=== PATIENT | female | born 1970 | race Caucasian/White ===

== ENCOUNTER → 2021-02-06 | Outpatient (CLI) | payer OTHER ==
[~2021-02-06] VITALS: Ht 22.9 cm; Wt 105.9 kg
== END | disposition home or self-care (01) ==
LOC: DTH 11:50
PROVIDERS: ATTEND Surgery
DX: I10 Essential (primary) hypertension (principal); M19.91 Primary osteoarthritis, unspecified site; K21.9 Gastro-esophageal reflux disease without esophagitis; E78.00 Pure hypercholesterolemia, unspecified; E66.3 Overweight
CPT/HCPCS: 97802

== ENCOUNTER → 2021-03-16 | Outpatient (CLI) | payer OTHER | END | disposition home or self-care (01) | LOC: DTH 03-09 09:03 | PROVIDERS: ATTEND Surgery | DX: I10 Essential (primary) hypertension (principal); K21.9 Gastro-esophageal reflux disease without esophagitis; E78.00 Pure hypercholesterolemia, unspecified; M19.91 Primary osteoarthritis, unspecified site; E66.3 Overweight | CPT/HCPCS: 97803 ==

== ENCOUNTER → 2021-04-06 | Outpatient (CLI) | payer OTHER | END | disposition home or self-care (01) | LOC: DTH 08:56 | PROVIDERS: ATTEND Surgery | DX: Z71.3 Dietary counseling and surveillance (principal); E78.00 Pure hypercholesterolemia, unspecified; G47.33 Obstructive sleep apnea (adult) (pediatric); I10 Essential (primary) hypertension; K21.9 Gastro-esophageal reflux disease without esophagitis; M19.91 Primary osteoarthritis, unspecified site | CPT/HCPCS: 97803 ==

== ENCOUNTER → 2021-06-08 | Outpatient (CLI) | payer BC ==
[2021-06-08 11:20] LABS: APPEARANCE,URINE Clear (CLEAR); BILIRUBIN,URINE Negative (NEGATIVE); COLOR,URINE Yellow (YELLOW); GLUCOSE, URINE (UA) Negative (NEGATIVE); KETONES,URINE Negative (NEGATIVE); LEUKOCYTE ESTERASE ,URINE Moderate (NEGATIVE); NITRATE,URINE Negative (NEGATIVE); OCCULT BLOOD,URINE Negative (NEGATIVE); PROTEIN,URINE Negative (NEGATIVE)
[2021-06-08 11:20] LABS: BASOPHILS % (AUTO) 0.8 % (0.0-5.0); EOSINOPHILS % (AUTO) 3.7 % (0.0-8.0); HEMATOCRIT 39.4 % (36-48); LYMPHOCYTES % (AUTO) 28.7 % (21.0-51.0); MEAN CORPUSCULAR HEMOGLOBIN 29.2 pg (27.0-33.0); MEAN CORPUSCULAR HGB CONC 33.2 g/dL (32.0-36.0); MEAN CORPUSCULAR VOLUME 87.9 fL (79-99); MONOCYTES % (AUTO) 6.7 % (3.0-13.0); PLATELET COUNT (AUTO) 269 K/uL (130-400); RED BLOOD CELL COUNT(AUTO) 4.48 MIL/uL (4.00-5.50); RED CELL DISTRIBUTION WIDTH 13.1 % (11.0-15.5); WHITE BLOOD COUNT (AUTO) 7.6 K/uL (4.8-10.8)
[2021-06-08 11:26] LABS: HEMOGLOBIN A1C 6.2 % (4.0-6.0)
[2021-06-08 11:29] LABS: BACTERIA,URINE Few /HPF (None Seen); RBC,URINE 0-1 /HPF (0-1); SQUAMOUS EPITHELIAL CELL,UR Few /HPF (0-2)
[2021-06-08 11:32] LABS: % IRON SATURATION 24.2 % (22-44)
[2021-06-08 11:39] LABS: INR 0.96 (0.85-1.15); PROTHROMBIN TIME 10.5 SEC (9.6-11.6)
[2021-06-08 11:41] LABS: PARTIAL THROMBOPLASTIN TIME 27.5 SEC (26.3-35.5)
[2021-06-08 11:56] LABS: ALBUMIN 3.7 g/dL (3.5-5.0); BILIRUBIN,TOTAL 0.4 mg/dL (0.2-1.0); CREATININE 0.8 mg/dL (0.5-1.5); MAGNESIUM 1.9 mg/dL (1.80-2.40); PHOSPHORUS 3.7 mg/dL (2.5-4.9); POTASSIUM 3.6 mmol/L (3.5-5.1); THYROID STIMULATING HORMONE 0.83 uIU/mL (0.36-3.74); TOTAL PROTEIN, SERUM 7.2 g/dL (6.0-8.3)
== END | disposition home or self-care (01) ==
LOC: LAB 09:56
PROVIDERS: ATTEND Family Medicine
DX: Z01.812 Encounter for preprocedural laboratory examination (principal); Z01.810 Encounter for preprocedural cardiovascular examination; E66.09 Other obesity due to excess calories; E78.2 Mixed hyperlipidemia; I10 Essential (primary) hypertension; K21.9 Gastro-esophageal reflux disease without esophagitis
CPT/HCPCS: 36415; 80053; 80061; 81001; 82043; 82306; 82525; 82607; 82728; 82746; 83036; 83540; 83550; 83735; 83970; 84100; 84425; 84443; 84446; 84590; 84597; 84630; 85025; 85610; 85730; 87077; 87088; 87186

== ENCOUNTER 2021-08-06 07:41 | Inpatient (IN) | payer OTHER ==
[2021-08-03 12:14] LABS: BASOPHILS % (AUTO) 0.6 % (0.0-5.0); EOSINOPHILS % (AUTO) 2.3 % (0.0-8.0); HEMATOCRIT 41.1 % (36-48); LYMPHOCYTES % (AUTO) 30.9 % (21.0-51.0); MEAN CORPUSCULAR HEMOGLOBIN 28.5 pg (27.0-33.0); MEAN CORPUSCULAR HGB CONC 32.4 g/dL (32.0-36.0); NEUTROPHILS % (AUTO) 58.9 % (40.0-77.0); PLATELET COUNT (AUTO) 258 K/uL (130-400); RED BLOOD CELL COUNT(AUTO) 4.67 MIL/uL (4.00-5.50); RED CELL DISTRIBUTION WIDTH 12.6 % (11.0-15.5); WHITE BLOOD COUNT (AUTO) 8.9 K/uL (4.8-10.8)
[2021-08-03 12:22] LABS: CREATININE 0.8 mg/dL (0.5-1.5); POTASSIUM 3.7 mmol/L (3.5-5.1)
[2021-08-05 08:49] VITALS: BP 146/86
[2021-08-06] VITALS (23 sets, daily range): BP systolic 12–135; BP diastolic 55–85
[~2021-08-06] VITALS: Ht 175.3 cm; Wt 106.9 kg
[~2021-08-06 07:41] MED LIST: ATEN1TAB3 PO; ESTR0.5T PO; ROSU5TAB12 PO; SERT25TA PO
[2021-08-06] MEDS ORDERED: HEPARIN 5,000 UNIT VIAL ONE (08:52)
[2021-08-06] MEDS: CEFOXITIN SODIUM 2 GM VIAL IVP SCH ×2 (08:57→10:30)
[2021-08-06] MEDS ORDERED: LACTATED RINGERS 1000ML 1,000 ML IV ONE (08:58)
[2021-08-06] MEDS ORDERED: HEPARIN 5,000 UNIT VIAL SQ SCH (09:00)
[2021-08-06] MEDS ORDERED: SCOPOLAMINE HYDROBROMIDE 1 EACH ADH..PATCH TD ONE (10:21)
[2021-08-06] MEDS ORDERED: ONDANSETRON 4MG INJ ONE ×2 (10:22→12:10)
[2021-08-06] MEDS ORDERED: MIDAZOLAM HCL 1 MG/ML 2ML VIAL ONE (10:22)
[2021-08-06] MEDS ORDERED: DEXMEDETOMIDINE HCL 200 MCG/2 ML VIAL IV ONE (10:25)
[2021-08-06] MEDS ORDERED: MAGNESIUM SULFATE 4.06 MEQ/ML ***TPN USE ONLY IJ ONE (10:26)
[2021-08-06] MEDS ORDERED: FENTANYL CITRATE PF 50 MCG/1 ML 2ML VIAL ONE (10:32)
[2021-08-06] MEDS ORDERED: PROPOFOL 10 MG/ML 20ML VIAL IV ONE (10:32)
[2021-08-06] MEDS ORDERED: ROCURONIUM 10MG/1ML SYR 10 MG/ML ML ONE ×2 (10:32→10:53)
[2021-08-06] MEDS ORDERED: BUPIVACAINE/PF 0.5% 30ML VIAL ONE (10:36)
[2021-08-06] MEDS ORDERED: METHYLENE BLUE 5 MG/ML AMP ONE (10:36)
[2021-08-06] MEDS ORDERED: GLYCOPYRROLATE 1 MG/5 ML SYRINGE ONE (11:11)
[2021-08-06] MEDS ORDERED: NEOSTIGMINE 5MG/5ML SYR IV ONE (12:10)
[2021-08-06] MEDS ORDERED: LACTATED RINGERS 1000ML 1,000 ML IV SCH (12:30)
[2021-08-06] MEDS ORDERED: MORPHINE 5 MG/ML VIAL (5MG OR GREATER DOSE) IVP PRN (12:30)
[2021-08-06] MEDS ORDERED: ONDANSETRON 4MG INJ IVP PRN (12:30)
[2021-08-06] MEDS ORDERED: KETAMINE HCL 50MG/ML 10ML VIAL IJ ONE (12:38)
[2021-08-06] MEDS ORDERED: MEPERIDINE-PF 25 MG/ML SYG ONE (12:49)
[2021-08-06] MEDS ORDERED: HYDROMORPHONE PCA 10 MG/50 ML 50 ML IV ONE (16:53)
[2021-08-06] MEDS ORDERED: HYDROMORPHONE 0.5 MG SYG (0.5MG/0.5ML) ONE (17:03)
[2021-08-06] MEDS ORDERED: PROMETHAZINE HCL 25 MG/ML 1ML AMPULE IM PRN ×3 (17:30)
[2021-08-06] MEDS ORDERED: HYDROMORPHONE-NS 0.2MG/ML 50ML PCA CASSETTE IV SCH (17:30)
[2021-08-06] MEDS ORDERED: MEPERIDINE-PF 25 MG/ML SYG IV PRN (17:30)
[2021-08-06] MEDS ORDERED: MORPHINE 4 MG SYG IM PRN (17:30)
[2021-08-06] MEDS ORDERED: MORPHINE 2 MG SYG IM PRN ×2 (17:30)
[2021-08-06] MEDS: FAMOTIDINE 20MG VIAL IV SCH (20:47)
[2021-08-06] MEDS: HEPARIN 5,000 UNIT VIAL SQ SCH (20:56)
[2021-08-06] MEDS: PROMETHAZINE HCL 25 MG/ML 1ML AMPULE IM PRN (21:10)
[2021-08-07] MEDS: PROMETHAZINE HCL 25 MG/ML 1ML AMPULE IM PRN ×2 (03:48→13:02)
[2021-08-07 03:58] VITALS: BP 122/79
[2021-08-07 05:00] LABS: BASOPHILS % (AUTO) 0.1 % (0.0-5.0); HEMATOCRIT 39.6 % (36-48); LYMPHOCYTES % (AUTO) 6.9 % (21.0-51.0); MEAN CORPUSCULAR HEMOGLOBIN 29.8 pg (27.0-33.0); MEAN CORPUSCULAR HGB CONC 33.8 g/dL (32.0-36.0); MEAN CORPUSCULAR VOLUME 88.2 fL (79-99); MONOCYTES % (AUTO) 3.9 % (3.0-13.0); NEUTROPHILS % (AUTO) 88.7 % (40.0-77.0); PLATELET COUNT (AUTO) 262 K/uL (130-400); RED BLOOD CELL COUNT(AUTO) 4.49 MIL/uL (4.00-5.50); RED CELL DISTRIBUTION WIDTH 12.8 % (11.0-15.5); WHITE BLOOD COUNT (AUTO) 15.2 K/uL (4.8-10.8)
[2021-08-07 05:35] LABS: CREATININE 0.8 mg/dL (0.5-1.5); POTASSIUM 3.8 mmol/L (3.5-5.1)
[2021-08-07 08:05] VITALS: BP 122/74
[2021-08-07] MEDS ORDERED: ESTRADIOL 0.5 MG TABLET PO SCH (09:00)
[2021-08-07] MEDS ORDERED: CHLORTHALIDONE PO SCH (09:00)
[2021-08-07] MEDS ORDERED: SERTRALINE HCL 25 MG PO SCH (09:00)
[2021-08-07] MEDS ORDERED: SERTRALINE HCL 50 MG TABLET PO SCH (09:00)
[2021-08-07] MEDS ORDERED: ATENOLOL PO SCH ×2 (09:00)
[2021-08-07] MEDS ORDERED: CHLORTHALIDONE E PO SCH (09:00)
[2021-08-07] MEDS ORDERED: ROSUVASTATIN 5MG PO SCH (09:00)
[2021-08-07] MEDS ORDERED: NON-FORMULARY MEDICATION 1 EACH (Rosuvastatin Calcium 5 MG) PO SCH (09:00)
[2021-08-07] MEDS ORDERED: [UNRECOGNIZED DRUG - OTHER] PO SCH (09:00)
[2021-08-07] MEDS: FAMOTIDINE 20MG VIAL IV SCH (10:42)
[2021-08-07] MEDS: HEPARIN 5,000 UNIT VIAL SQ SCH (10:53)
[2021-08-07 11:49] VITALS: BP 129/74
[2021-08-07] MEDS ORDERED: APAP/CODEINE 120/12MG 5ML ONE ×2 (14:27→14:28)
[2021-08-07] MEDS ORDERED: APAP/CODEINE 120/12MG 5ML PO PRN (14:30)
== END 2021-08-07 15:55 | disposition home or self-care (01) | DRG 621 ==
LOC: DAH 07:41 → DAHIP 07:42 → DAH 07:42 → 3AH 13:29
PROVIDERS: ADMIT Surgery; ATTEND Surgery
PROC: 3E0T3BZ Introduction of Anesthetic Agent into Peripheral Nerves and Plexi, Percutaneous Approach (ICD-10-PCS; 2021-08-06)
PROC: 0DB64Z3 Excision of Stomach, Percutaneous Endoscopic Approach, Vertical (ICD-10-PCS; principal; 2021-08-06 10:27)
DX: E66.01 Morbid (severe) obesity due to excess calories (principal); I10 Essential (primary) hypertension; Z20.822 Contact with and (suspected) exposure to COVID-19; M19.90 Unspecified osteoarthritis, unspecified site; Z68.34 Body mass index [BMI] 34.0-34.9, adult
CPT/HCPCS: 36415; 80048; 82948; 84702; 85025; 87635; 88307; 93005; C9803; G0378; J0694; J1170; J1644; J2175; J2250; J2270; J2405; J2550; J2704; J2710; J3010; J3475; J3490; J7030; J7120; Q9968